=== PATIENT | male | born 1995 | race Caucasian/White ===

== ENCOUNTER 2018-09-25 17:22 | Emergency (ER) | payer BC | END 2018-09-25 18:13 | disposition home or self-care (01) | LOC: FTE 18:13 | DX: H00.025 Hordeolum internum left lower eyelid (principal) | CPT/HCPCS: 99283; Z7502 ==

== ENCOUNTER 2018-12-17 13:51 | Emergency (ER) | payer SELFPAY, BC | END 2018-12-17 14:48 | disposition home or self-care (01) | LOC: E/R 13:51 | DX: S80.861A Insect bite (nonvenomous), right lower leg, initial encounter (principal); S80.862A Insect bite (nonvenomous), left lower leg, initial encounter; W57.XXXA Bitten or stung by nonvenomous insect and other nonvenomous arthropods, initial encounter; Y92.9 Unspecified place or not applicable | CPT/HCPCS: 99282 ==